=== PATIENT | female | born 1990 | race Caucasian/White ===

== ENCOUNTER 2023-05-12 10:21 | Inpatient (IN) | payer OTHER, SELFPAY ==
[2023-05-12 10:31] VITALS: BP 138/93; PULSE 81; RESP 18; TEMP 36.6; O2SAT 97; BMI 22.8
[2023-05-12 10:56] LABS: Add Urine Microscopic? NO; Charge for UA Resulting for Rev
[2023-05-12 11:01] LABS: Basophils # 0.1 10^3/uL (0.0-0.1); Basophils % 0.7 %; Eosinophils % 0.4 %; Hematocrit 39.1 % (36-47); Lymphocytes # 2.2 10^3/uL (0.8-4.8); Lymphocytes % 20.4 %; Mean Corpuscular Volume 94.2 fl (85-98); Mean Platelet Volume 10.2 fL (7.4-10.4); Monocytes # 0.7 10^3/uL (0.2-0.9); Monocytes % 6.9 %; Neutrophils # 7.55 10^3/uL (1.8-7.7); Neutrophils % 71.3 %; Nucleated Red Blood Cells % 0 %; Platelet Count 363 10^3/cmm (157-399); Red Blood Count 4.15 10^6/uL (3.85-5.65); Red Cell Distribution Width 12.9 % (12.1-15.1); White Blood Count 10.58 10^3/uL (3.29-11.43)
[2023-05-12 11:12] LABS: Amphetamines Screen Urine Negative (Negative); Barbiturates Screen Urine Negative (Negative); Benzodiazepines Screen Urine Negative (Negative); Bilirubin Urine Neg (Negative); Blood Urine Neg (Negative); Cocaine Screen Urine Negative (Negative); Glucose Urine UA Norm (Normal); Ketones Urine Negative (Negative); Leukocyte Esterase Urine Negative (Negative); Nitrate Urine Negative (Negative); Opiate Screen Urine Negative (Negative); PCP Screen Urine Negative (Negative); Protein Urine Neg (Negative); Specific Gravity, Urine 1.005 (1.005-1.030); Sulfosalicylic Acid Urine Negative (Negative); THC Screen Urine Negative (Negative); Urine Appearance Clear (CLEAR); Urine Color Yellow (Yellow); Urobilinogen Urine Norm (Negative); pH Urine 8 (5-7)
[2023-05-12 11:18] LABS: Alanine Aminotransferase 15 U/L (0-33); Albumin Level 4.6 g/dL (3.5-5.2); Alkaline Phosphatase 70 U/L (35-105); Anion Gap 13.7 (5-19); Aspartate Amino Transferase 21 U/L (0-32); Blood Urea Nitrogen 11 mg/dL (6-20); Calcium 9.1 mg/dL (8.5-10.5); Carbon Dioxide 22 mmol/L (22-29); Chloride 101 mmol/L (98-107); Creatinine Clr Calc Pharmacy 98.9716; Glomerular Filtration Rate 96.4 mL/min (90-130); Glucose 101 mg/dL (65-115); Osmolality Calculated 276 mOsm/kg (285-295); Potassium 3.7 mmol/L (3.5-5.1); Sodium 133 mmol/L (136-145); Total Bilirubin 1.3 mg/dL (0.15-1.2); Total Protein 7.6 g/dL (6.6-8.7)
[2023-05-12 11:21] LABS: Acetaminophen < 5.0 ug/mL (10-30); Alcohol Level < 10 mg/dL (0-10); Salicylate < 0.3 mg/dL (3-10)
--- NOTE | 2023-05-12 11:22 | PC.PHAR ---
PT STATES GETS MEDICATIONS FROM [facility]. LEXAPRO 10 MG WAS CHANGED TO ZOLOFT 100 MG-1/2 TABLET DAILY FOR 4 WEEKS THEN INCREASE T0 100 MG DAILY. PT WAS ALLOWED TO USE HER PHONE TO LOOK UP MEDICATION AND STRENGTH.
--- NOTE | 2023-05-12 11:35 | ED.C_ITS ---
HPI - Psych 2 General: Chief Complaint: Psychiatric Symptoms Stated Complaint: 96 hr hold Time Seen by Provider: 05/12/23 10:25 History of Present Illness: Patient presents to the ER for 96-hour hold secondary to self-harm and depression. Patient's had a 96-hour hold from the medical physics researcher secondary to the patients worsening depression and anxiety up to the point she been cutting herself for the last couple months secondary to release the pain and feel pain somewhere other than her head. Patient is upfront and open about these and says she is not suicidal and it was not attempt to kill herself. Patient is just recently changed medications from Lexapro to Zoloft and she has taken 1 pill. She thought the Lexapro was making her anxiety better but making her depression worse. Patient is cooperative and would prefer not to be placed inpatient but would be willing to go there if it would help. Review of Systems 2 General: Reports: 10 or more systems reviewed and unremarkable except in HPI and below PFSH ED 2 PFSH: Medical History No pertinent past medical history neghx: htn,dm,thyroid,dvt/pe PCP: None Surgical History Hx of hernia repair (~1998) right inguinal Hx of breast augmentation (~03/17/21) gel implant Family History Denies family history of Colon cancer Ovarian cancer Diabetes Heart disease Hypercholesteremia Breast cancer Hypertension Uterine cancer Thyroid disease Stroke Social History Smoking and tobacco/nicotine status: former use of tobacco/nicotine Physical Exam 2 Const: COMMON NORMALS: no acute distress, average body habitus, patient oriented x3, no limitations, healthy appearing, alert and well nourished HENMT: COMMON NORMALS: normocephalic, atraumatic, hearing grossly normal bilaterally, external ears normal, EAC's normal, Normal external nose present, moist oral mucous membranes and oropharynx normal HEAD & SCALP: normocephalic and atraumatic NOSE: Normal external nose present EXTERNAL EAR: Yes external ears normal EXTERNAL AUDITORY CANAL: EAC's normal Eye: COMMON NORMALS: Equal, round and reactive pupils present, EOMs intact bilaterally, conjunctivae normal and no scleral icterus CONJUNCTIVA: Yes conjunctivae normal PUPIL: Yes Equal, round and reactive pupils present Neck/C-Spine: COMMON NORMALS: full ROM, no lymphadenopathy, supple, no meningeal signs, no JVD and Thyroid normal THYROID: Thyroid normal Chest: COMMONS NORMALS: normal inspection of the chest and normal palpation of entire chest wall Resp: COMMON NORMALS: normal respiratory effort, No retractions and No use of accessory muscles Cardio: COMMON NORMALS: no JVD, regular rate, regular rhythm, S1 normal heart sound present, S2 normal heart sound present, No gallops present (Cardio), No clicks present (Cardio), No murmurs present (Cardio) and No rub (Cardio) R ATE: regular rate RHYTHM: regular rhythm HEART SOUNDS: S1 normal heart sound present and S2 normal heart sound present GI: COMMON NORMALS: Normal to inspection, nondistended, normoactive bowel sounds present, Soft to palpation, non-tender, No hepatosplenomegaly present and no masses PALPATION: Yes Soft to palpation and Yes No hepatosplenomegaly present Neuro: COMMON NORMALS: patient oriented x3 SENSORIUM/ORIENTATION: Yes alert MENINGEAL SIGNS: Yes no meningeal signs Course 2 Vital Signs: Vital signs: Vital Signs Temperature 97.9 F 05/12/23 10:31 Pulse Rate 81 05/12/23 10:31 Respiratory Rate 18 05/12/23 10:31 Blood Pressure 138/93 05/12/23 10:31 Pulse Oximetry 97 05/12/23 10:31 Oxygen Delivery Me thod Room Air 05/12/23 10:31 [facility] - Psych Medical Decision Making Patient was worked up in normal psychiatric fashion for medical clearance. Once medically cleared Dr. Galo was consulted who agreed to place patient inpatient for further evaluation and treatment. Differential Diagnosis Likely depression and acute anxiety; Unlikely acute psychosis, chronic schizophrenia, suicidal ideation, bipolar disorder or drug-induced psychotic disorder Medical Records I reviewed the patient's medical records. Lab Data I reviewed the patient's lab results. 05/12/23 10:45 05/12/23 10:45 Laboratory Results WBC 10.58 10^3/uL (3.29-11.43) 05/12/23 10:45 RBC 4.15 10^6/uL (3.85-5.65) 05/12/23 10:45 Hgb 13.30 g/dL (11.27-16.99) 05/12/23 10:45 Hct 39.1 % (36-47) 05/12/23 10:45 MCV 94.2 fl (85-98) 05/12/23 10:45 MCH 32.0 pg (27-33) 05/12/23 10:45 MCHC 34.0 g/dL (30-55) 05/12/23 10:45 RDW 12.9 % (12.1-15.1) 05/12/23 10:45 Plt Count 363 10^3/cmm (157-399) 05/12/23 10:45 MPV 10.2 fL (7.4-10.4) 05/12/23 10:45 Neut % (Auto) 71.3 % 05/12/23 10:45 Lymph % (Auto) 20.4 % 05/12/23 10:45 Rapides % (Auto) 6.9 % 05/12/23 10:45 Eos % (Auto) 0.4 % 05/12/23 10:45 Baso % (Auto) 0.7 % 05/12/23 10:45 Neut # (Auto) 7.55 10^3/uL (1.8-7.7) 05/12/23 10:45 Lymph # (Auto) 2.2 10^3/uL (0.8-4.8) 05/12/23 10:45 Rapides # (Auto) 0.7 10^3/uL (0.2-0.9) 05/12/23 10:45 Eos # (Auto) 0.0 10^3/uL (0.0-0.8) 05/12/23 10:45 Baso # (Auto) 0.1 10^3/uL (0.0-0.1) 05/12/23 10:45 Nucleated RBC % (auto) 0 % 05/12/23 10:45 Nucleated RBCs # 0.0 /100WBC 05/12/23 10:45 Sodium 133 mmol/L (136-145) L 05/12/23 10:45 Potassium 3.7 mmol/L (3.5-5.1) 05/12/23 10:45 Chloride 101 mmol/L (98-107) 05/12/23 10:45 Carbon Dioxide 22 mmol/L (22-29) 05/12/23 10:45 Anion Gap 13.7 (5-19) 05/12/23 10:45 BUN 11 mg/dL (6-20) 05/12/23 10:45 Creatinine 0.7 mg/dL (0.5-0.9) 05/12/23 10:45 GFR Calculation 96.4 mL/min (90-130) 05/12/23 10:45 Glucose 101 mg/dL (65-115) 05/12/23 10:45 Calculated Osmolality 276 mOsm/kg (285-295) L 05/12/23 10:45 Calcium 9.1 mg/dL (8.5-10.5) 05/12/23 10:45 Total Bilirubin 1.3 mg/dL (0.15-1.2) H 05/12/23 10:45 AST 21 U/L (0-32) 05/12/23 10:45 ALT 15 U/L (0-33) 05/12/23 10:45 Alkaline Phosphatase 70 U/L (35-105) 05/12/23 10:45 Total Protein 7.6 g/dL (6.6-8.7) 05/12/23 10:45 Albumin 4.6 g/dL (3.5-5.2) 05/12/23 10:45 Globulin 3.0 g/dL (1.3-4.6) 05/12/23 10:45 HCG, Qual Negative (Negative) 05/12/23 10:45 Urine Color Yellow (Yellow) 05/12/23 10:41 Urine Appearance Clear (CLEAR) 05/12/23 10:41 Urine pH 8 (5-7) H 05/12/23 10:41 Ur Specific Gordon 1.005 (1.005-1.030) 05/12/23 10:41 Urine Protein Neg (Negative) 05/12/23 10:41 Urine Glucose (UA) Norm (Normal) 05/12/23 10:41 Urine Ketones Negative (Negative) 05/12/23 10:41 Urine Blood Neg (Negative) 05/12/23 10:41 Urine Nitrate Negative (Negative) 05/12/23 10:41 Urine Bilirubin Neg (Negative) 05/12/23 10:41 Prot Sulfosalicylic Acd Negative (Negative) 05/12/23 10:41 Urine Urobilinogen Norm mg/dL (Negative) 05/12/23 10:41 Ur Leukocyte Esterase Negative (Negative) 05/12/23 10:41 Salicylates < 0.3 mg/dL (3-10) L 05/12/23 10:45 Urine Opiates Screen Negative ng/mL (Negative) 05/12/23 10:41 Acetaminophen < 5.0 ug/mL (10-30) L 05/12/23 10:45 Ur Barbiturates Screen Negative ng/mL (Negative) 05/12/23 10:41 Ur Phencyclidine Scrn Negative ng/mL (Negative) 05/12/23 10:41 Ur Amphetamines Screen Negative ng/mL (Negative) 05/12/23 10:41 U Benzodiazepines Scrn Negative ng/mL (Negative) 05/12/23 10:41 Urine Cocaine Screen Negative ng/mL (Negative) 05/12/23 10:41 U Marijuana (THC) Screen Negative ng/mL (Negative) 05/12/23 10:41 Ethyl Alcohol < 10 mg/dL (0-10) 05/12/23 10:45 No radiology studies performed this visit Discharge Plan Discharge Patient Disposition: Admitted As Inpatient Clinical Impression: Depression, Acute anxiety, Intentional self-harm Condition: Stable Coding Level of Care Code ED Automatic Quilling Machine Operator for Lashell Vincent
[2023-05-12] MEDS: nicotine 21 mg Patch 1 PATCH TRANSDERMA (11:39)
[2023-05-12 11:40] LABS: HCG, Serum Qual Negative (Negative)
--- NOTE | 2023-05-12 13:58 | PC.NURSE ---
PATIENT CALLED REQUESTING UPDATE ON PATIENT. WAS NOT ON PATIENT CONTACT LIST. WHEN PATIENT WAS ASKED IF WE COULD GIVE INFORMATION TO , PATIENT STATED SHE DID NOT WANT HIM TO KNOW ANY INFORMATION ABOUT HER STAY HERE. WAS NOTIFIED OVER THE PHONE THAT WE WERE UNABLE TO GIVE HIM ANY INFORMATION.
--- NOTE | 2023-05-12 14:05 | PC.NURSE ---
96 hour hold rights reviewed and read to patient. Patient verbalized understandings. Copy of rights left at the bedside.
[2023-05-12 15:40] VITALS: BP 138/83; PULSE 79; RESP 17; O2SAT 98
[2023-05-12 16:21] VITALS: BP 150/93; PULSE 79; RESP 16; TEMP 36.6; O2SAT 98
[2023-05-12] MEDS: nicotine 4 mg lozenge MUCOUS MEM ×2 (18:29→20:50)
[2023-05-12] MEDS: trazodone 50 mg Tablet PO (20:49)
[2023-05-12] MEDS: sertraline 50 mg Tablet PO (20:49)
[2023-05-12 20:52] VITALS: BP 127/82; PULSE 76; RESP 17; TEMP 37.1; O2SAT 98
[2023-05-13 06:00] VITALS: BP 109/74; PULSE 57; RESP 16; TEMP 36.7; O2SAT 98
[2023-05-13] MEDS: nicotine 21 mg Patch 1 PATCH TRANSDERMA (06:26)
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
[2023-05-13] MEDS: nicotine 4 mg lozenge MUCOUS MEM ×5 (12:26→20:28)
[2023-05-13 14:00] VITALS: BP 128/81; PULSE 68; RESP 13; TEMP 36.8; O2SAT 98
[2023-05-13] MEDS: blistex lip oint 7 gm Tube 1 APPLIC TOPICAL (16:29)
[2023-05-13] MEDS: trazodone 50 mg Tablet PO (20:28)
[2023-05-13] MEDS: sertraline 50 mg Tablet PO (20:28)
[2023-05-13 20:42] VITALS: BP 125/85; PULSE 80; RESP 17; TEMP 36.8; O2SAT 98
[2023-05-14 06:00] VITALS: BP 107/73; PULSE 68; RESP 17; TEMP 36.8; O2SAT 97
[2023-05-14] MEDS: nicotine 4 mg lozenge MUCOUS MEM ×6 (08:08→18:04)
[2023-05-14 14:00] VITALS: BP 96/48; PULSE 76; RESP 12; TEMP 36.5; O2SAT 95
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
[2023-05-14 18:00] VITALS: BP 96/48; PULSE 76; RESP 12; TEMP 36.5; O2SAT 95
--- NOTE | 2023-05-14 18:29 | PC.NURSE ---
sent one tablet of trazodone 50mg home with patient for tonight use only. doctor ok's
== END 2023-05-14 18:40 | disposition home or self-care (01) | DRG 885 ==
LOC: ER 13:07 → NP 15:56
PROVIDERS: Family Medicine; Admitting Provider Psychiatry & Neurology Psychiatry; Emergency Provider Emergency Medicine; Visit Provider Psychiatry & Neurology Psychiatry
DX: F33.9 Major depressive disorder, recurrent, unspecified (principal); F41.9 Anxiety disorder, unspecified; Z87.891 Personal history of nicotine dependence; Z91.52 Personal history of nonsuicidal self-harm
CPT/HCPCS: 80053; 80306; 80307; 81003; 84703; 85025; 97150; 97165; 99285